=== PATIENT | female | born 2005 | race Caucasian/White ===

== ENCOUNTER 2024-03-08 05:33 | Emergency (ER) | payer OTHER ==
[~2024-03-08] VITALS: Ht 160 cm; Wt 52.3 kg
[~2024-03-08 05:33] MED LIST: REGLAN 10MG10 MG/TAB PO; ZOFRAN ODT4 MG PO
[2024-03-08 05:39] VITALS: TEMP 100
[2024-03-08] MEDS ORDERED: NS 1,000 ML IV ONE (05:45)
[2024-03-08] MEDS ORDERED: Ondansetron 4 MG/2 ML VIAL IV ONE (05:45)
[2024-03-08] MEDS ORDERED: Ketorolac 15 MG/ML VIAL IV ONE (06:00)
[2024-03-08 06:19] LABS: BASO # 0.1 K/mm3 (0.0-0.2); EOS # 0.3 K/mm3 (0.0-0.7); GRAN # 2.5 K/mm3 (1.4-6.5); GRAN % 48.3 % (42.2-75.2); HEMATOCRIT 39.3 % (35.0-45.0); HEMOGLOBIN 13.3 g/dl (12.0-15.0); LYMPH # 2.1 K/mm3 (1.2-3.4); MEAN CELL VOLUME 88 fl (80.0-95.0); MEAN CORPUSCULAR HEMOGLOBIN 30 pg (26-32); MEAN CORPUSCULAR HGB CONC 34 g/dl (33.0-37.0); MEAN PLATELET VOLUME 9.9 fl (7.4-10.4); MONO # 0.3 K/mm3 (0.1-0.6); MONO % 6.5 % (1.7-9.3); PLATELET COUNT 220 K/mm3 (130-400); RED BLOOD COUNT 4.48 M/mm3 (4.10-5.30); REDCELL DISTRIBUTION WIDTH-CV 12.6 % (11.5-14.5)
[2024-03-08 06:37] LABS: ALANINE AMINOTRANSFERASE 18 U/L (0-55); ALBUMIN 4.3 g/dL (3.5-5.0); ALKALINE PHOSPHATASE 60 U/L (40-150); ANION GAP 14 mmol/L (7-16); AST,SGOT 25 U/L (5-34); BILIRUBIN,TOTAL 0.9 mg/dL (0.2-1.2); BLOOD UREA NITROGEN 7 mg/dL (7-19); CALCIUM 9.3 mg/dL (8.4-10.2); CHLORIDE 107 mEq/L (98-107); CREATININE, serum 0.84 mg/dL (0.57-1.11); GLUCOSE 89 mg/dL (70-99); LIPASE 30 U/L (8-78); MAGNESIUM 1.7 mg/dL (1.6-2.6); POTASSIUM 3.9 mEq/L (3.5-4.5); SODIUM 140 mEq/L (136-145); TOTAL PROTEIN 7.5 g/dl (6.2-8.1)
[2024-03-08 06:43] LABS: TROPONIN-I < 0.010 ng/mL (0.00-0.033)
[2024-03-08] MEDS ORDERED: ZOFRAN ODT4 MG PO (07:00)
[2024-03-08 07:10] VITALS: BP 115/80; PULSE 64
== END 2024-03-08 07:10 | disposition home or self-care (01) ==
LOC: COL.ER 05:33
PROVIDERS: Emergency Medicine
DX: B34.9 Viral infection, unspecified (principal); R50.9 Fever, unspecified; R11.2 Nausea with vomiting, unspecified; R53.1 Weakness; R53.81 Other malaise; R10.9 Unspecified abdominal pain; F41.9 Anxiety disorder, unspecified; Z79.899 Other long term (current) drug therapy
CPT/HCPCS: J1885; J2405; J7030